=== PATIENT | female | born 1980 | race Hispanic/Latino ===

== ENCOUNTER 2019-03-12 08:57 | Day surgery (SDC) | payer BC ==
[~2019-03-12] VITALS: Ht 167.6 cm; Wt 72.6 kg
[~2019-03-12 08:57] MED LIST: BUDE10.2 IH; CETI10TA57 PO; COLE1TAB2 PO; DEXL60CA3 PO; ERGO2000 PO; FAMO40TA7 PO; FENO160T16 PO; METF-446 PO; MV-M1TAB20 PO; ROSU10TA28 PO; SODIUM CHLORIDE 0.9% 1000ML 1,000 ML IV ONE; SOLI5 PO; SUCR1TAB2 PO; VITA-164 PO
[2019-03-12 10:00] VITALS: BP 125/94
[2019-03-12] MEDS ORDERED: PROPOFOL 10 MG/ML 20ML VIAL IV ONE (10:35)
[2019-03-12 10:47] VITALS: BP 118/71
[2019-03-12 10:55] VITALS: BP 114/76
[2019-03-12 11:11] VITALS: BP 124/81
== END 2019-03-12 11:26 | disposition home or self-care (01) ==
LOC: ENDO 08:57 → DAH 08:57 → ENDO 11:26
PROVIDERS: ATTEND Internal Medicine
DX: K22.2 Esophageal obstruction (principal); K29.50 Unspecified chronic gastritis without bleeding; K21.0 Gastro-esophageal reflux disease with esophagitis; K22.8 Other specified diseases of esophagus; K31.89 Other diseases of stomach and duodenum; I10 Essential (primary) hypertension; M19.90 Unspecified osteoarthritis, unspecified site; M79.7 Fibromyalgia; J06.9 Acute upper respiratory infection, unspecified; F32.9 Major depressive disorder, single episode, unspecified; Z79.01 Long term (current) use of anticoagulants; Z79.899 Other long term (current) drug therapy; Z86.010 Personal history of colon polyps; Z88.8 Allergy status to other drugs, medicaments and biological substances
CPT/HCPCS: 43239; 82948; A4215; A4221; A4222; A4223; A4606; A4620; A4663; J2704; J7030